=== PATIENT | female | born 1960 | race Caucasian/White ===

== ENCOUNTER → 2017-10-02 | Outpatient (CLI) | payer OTHER | LOC: CIMAGING 13:02 | PROVIDERS: ATTEND Pain Medicine Interventional Pain Medicine | DX: M16.0 Bilateral primary osteoarthritis of hip (principal); M48.56XA Collapsed vertebra, not elsewhere classified, lumbar region, initial encounter for fracture; Z98.1 Arthrodesis status | CPT/HCPCS: 72100-PO; 73521-PO ==

== ENCOUNTER → 2018-03-16 | Outpatient (CLI) | payer OTHER | LOC: SBRMNEURO 21:30 | PROVIDERS: ATTEND Psychiatry & Neurology Sleep Medicine | DX: G47.31 Primary central sleep apnea (principal); G47.34 Idiopathic sleep related nonobstructive alveolar hypoventilation ==

== ENCOUNTER 2018-06-28 13:56 | Emergency (ER) | payer OTHER ==
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
[2018-06-28 15:32] VITALS: BP 131/75
--- NOTE | 2018-07-11 15:02 | CPEKG ---
Test Reason : OPEN Blood Pressure : / mmHG Vent. Rate : 068 BPM Atrial Rate : 068 BPM P-R Int : 158 ms QRS Dur : 088 ms QT Int : 383 ms P-R-T Axes : 024 008 004 degrees QTc Int : 408 ms Sinus rhythm Confirmed by Ramiro Manriquez ([id number]) on 07/11/2018 3:02:35 PM Referred By: Confirmed By:Ramiro Manriquez
== END 2018-06-28 15:21 | disposition home or self-care (01) ==
LOC: CED 13:56
DX: S20.219A Contusion of unspecified front wall of thorax, initial encounter (principal); S46.811A Strain of other muscles, fascia and tendons at shoulder and upper arm level, right arm, initial encounter; V43.62XA Car passenger injured in collision with other type car in traffic accident, initial encounter
CPT/HCPCS: 73030-PO

== ENCOUNTER → 2018-11-16 | Outpatient (CLI) | payer OTHER | LOC: CIMAGING 13:58 | PROVIDERS: ATTEND Internal Medicine | DX: Z12.31 Encounter for screening mammogram for malignant neoplasm of breast (principal) ==

== ENCOUNTER → 2018-11-21 | Outpatient (CLI) | payer OTHER | LOC: CIMAGING 13:12 | PROVIDERS: ATTEND Internal Medicine | DX: R91.1 Solitary pulmonary nodule (principal); Z87.891 Personal history of nicotine dependence; I25.10 Atherosclerotic heart disease of native coronary artery without angina pectoris; S22.21XA Fracture of manubrium, initial encounter for closed fracture | CPT/HCPCS: 71250-PO ==

== ENCOUNTER → 2018-12-13 | Outpatient (CLI) | payer OTHER | LOC: CIMAGING 13:16 | PROVIDERS: ATTEND Internal Medicine | DX: N63.10 Unspecified lump in the right breast, unspecified quadrant (principal) | CPT/HCPCS: 76641-PO ==

== ENCOUNTER 2019-03-11 12:29 | Emergency (ER) | payer OTHER ==
[2019-03-11] MEDS ORDERED: METOCLOPRAMIDE 10 MG/2 ML VIAL IVP ONE (12:52)
[2019-03-11] MEDS ORDERED: HYDROmorphONE/DILAUDID 2 MG/ML INJ IVP ONE ×2 (12:52→13:37)
[2019-03-11] MEDS ORDERED: NS 1,000 ML IV ONE (12:52)
--- NOTE | 2019-03-11 12:59 | EDPHY ---
H & P Stated Complaint: Severe headache Time Seen by Provider: 03/11/19 12:41 HPI/ROS: CHIEF COMPLAINT: Severe headache HISTORY OF PRESENT ILLNESS: Patient is a 58-year-old female with a history of complex neurologic history. She suffered a stroke in 2007 which left residual right-sided face arm and leg weakness and contractures. After the stroke she had a surgical PFO correction and has since had a baclofen pump placed. She also had a neuro cortex stimulator placed few years later. In 2010 she fell and had an intracranial hemorrhage. She states that they were bridging veins and that she had a craniectomy. No coils or stents or clips. She then had another spontaneous bleed 6 months later and had a repeat craniectomy and cauterization of veins. This was all done in [place]. She reports having frequent mild headaches and she is followed by Neurology Dr. Bailey. She states however that her headache last night and today have been significantly worse than usual. Her daughter feels like she is having some slight confusion but able to answer all questions correctly. No new weakness or deficits. No recent fevers or infections. No recent trauma. She is on Coumadin. Severity: Severe Modifying factors: None REVIEW OF SYSTEMS: Constitutional: denies: chills, fever, recent illness, recent injury EENTM: denies: blurred vision, double vision, nose congestion Respiratory: denies: cough, shortness of breath Cardiac: denies: chest pain, irregular heart rate, lightheadedness, palpitations Gastrointestinal/Abdominal: denies: abdominal pain, diarrhea, nausea, vomiting, blood streaked stools Genitourinary: denies: dysuria, frequency, hematuria, pain Musculoskeletal: See HPI Skin: denies: lesions, rash, jaundice, bruising Neurological: See HPI Hematologic/Lymphatic: denies: blood clots, easy bleeding, easy bruising Immunologic/allergic: denies: HIV/AIDS, transplant 10 systems reviewed and negative except as noted EXAM: GENERAL: Well-appearing, well-nourished and in no acute distress. HEAD: Atraumatic, normocephalic. EYES: Pupils equal round and reactive to light, extraocular movements intact, sclera anicteric, conjunctiva are normal. ENT:oropharynx clear without exudates. Moist mucous membranes. NECK: Normal range of motion, supple without lymphadenopathy or JVD. LUNGS: Breath sounds clear HEART: Regular rate and rhythm without murmurs, rubs or gallops. ABDOMEN: Soft, nontender, normoactive bowel sounds. No guarding, no rebound. No masses appreciated. BACK: No CVA tenderness, no spinal tenderness, step-offs or deformities EXTREMITIES: Normal range of motion, no pitting or edema. No clubbing or cyanosis. NEUROLOGICAL: Right-sided cranial nerve deficit does well as arm and leg weakness, numbness and contractures, these are all at baseline. No new deficits on her left side. Baseline speech. Normal sensation and movement of her left arm and leg. PSYCH: Normal mood, normal affect. SKIN: Warm, dry, normal turgor, no visible rashes or lesions. Source: Patient Exam Limitations: No limitations - Personal History Tetanus Vaccine Date: < 10 years - Medical/Surgical History Hx Asthma: No Hx Chronic Respiratory Disease: Yes Hx Diabetes: No Hx Cardiac Disease: No Hx Renal Disease: No Hx Cirrhosis: No Hx Alcoholism: No Hx HIV/AIDS: No Hx Splenectomy or Spleen Trauma: No Other PMH: deep Brain stimulator, CVA 2007 with right sided deficits, nerve pain , HTN, intracranial hemorrhage with craniotomy x2, PFO repair, bacolfin pump, COPD, - Family History Significant Family History: No pertinent family hx - Social History Smoking Status: Former smoker Alcohol Use: Sober Drug Use: None Constitutional: Initial Vital Signs Temperature (C) 37.1 C 03/11/19 12:37 Heart Rate 64 03/11/19 12:37 Respiratory Rate 18 03/11/19 12:37 Blood Pressure 155/102 H 03/11/19 12:37 O2 Sat (%) 93 03/11/19 12:37 O2 Delivery Mode Nasal Cannula O2 (L/minute) 2 Allergies/Adverse Reactions: Penicillins Allergy (Verified 03/11/19 12:36) tramadol Allergy (Verified 03/11/19 12:36) Home Medications: Medication Instructions Recorded Baclofen [Baclofen 10 mg (RX)] 01/12/15 DULoxetine [Cymbalta] 01/12/15 GABAPENTIN 01/12/15 Lisinopril [Zestril 5 mg (*)] 01/12/15 Methocarbamol [Robaxin 500 mg (RX)] 01/12/15 Coumadin 03/11/19 Oxycodone HCl 03/11/19 Xtampza ER 03/11/19 Medical Decision Making - Diagnostics Imaging: Discussed imaging studies w/ call center rn Radiologist ED Course/Re-evaluation: 1:[address] scans are all very reassuring. Lab work is reassuring. Coumadin is therapeutic. We discussed the low risk that she has for bleeding at this point. We did discuss performing lumbar puncture but risks or greater than benefits at this point because of her previous lumbar surgery as well as the fact that she is currently on Coumadin. She is feeling better but is requesting more pain medication for headache and for her legs which has chronic pain and cramping. She did well with the initial dose of Dilaudid. She previously had listed as an allergy that made her "stopped breathing". Will remove this from her allergy last. She is not supposed to take ibuprofen or Toradol. 2:20 p.m. patient's headache is resolved. She is eager to go home. She and her daughter declined further workup or observation. Strict return precautions given. Discussed follow-up with Neurology Dr. Bailey for persistent headaches. They declined prescriptions. Differential Diagnosis: Partial list of the Differential diagnosis considered include but were not limited to; migraine, tension headache, muscle strain and although unlikely based on the history and physical exam, I also considered hemorrhage, thrombus, aneurysm, dissection, CVA, meningitis. I discussed these differential diagnoses and the plan with the patient as well as the usual and expected course. The patient understands that the diagnosis is provisional and that in medicine we are not always correct and that further workup is often warranted. Usual and customary warnings were given. All of the patient's questions were answered. The patient was instructed to return to the emergency department should the symptoms at all worsen or return, otherwise to followup with the physician as we discussed. - Data Points Medications Given: Discontinued Medications Hydromorphone HCl (Dilaudid) 0.25 mg IVP EDNOW ONE Stop: 03/11/19 12:53 Last Admin: 03/11/19 13:05 Dose: 0.25 mg Hydromorphone HCl (Dilaudid) 0.5 mg IVP EDNOW ONE Stop: 03/11/19 13:38 Last Admin: 03/11/19 13:41 Dose: 0.5 mg Sodium Chloride (Ns) 1,000 mls @ 0 mls/hr IV ONCE ONE; Wide Open PRN Reason: Protocol Stop: 03/11/19 12:53 Last Admin: 03/11/19 13:22 Dose: 1,000 mls Metoclopramide HCl (Reglan Injection) 10 mg IVP EDNOW ONE Stop: 03/11/19 12:53 Last Admin: 03/11/19 13:21 Dose: 10 mg Point of Care Test Results: CBC CBC Collection Date 03/11/19 CBC Collection Time 12:55 WBC 5.92 RBC 3.98 HGB 12.7 HCT 38.6 PLT 204 Neut # 3.45 Neut 58.3 LYMPH # 1.50 LYMPH 25.3 MCV 97 Chemistry 03/11/19 13:00 POC Sodium 144 mEq/L mEq/L (135-145) POC Potassium 4.5 mEq/L mEq/L (3.3-5.0) POC Chloride 102.0 mEq/L mEq/L (97-110) POC Total CO2 31 mEq/L mEq/L (22-31) POC BUN 15 mg/dL mg/dL (7-23) POC Creatinine 0.6 mg/dL mg/dL (0.6-1.0) POC Glucose 117 mg/dL H mg/dL (70-100) POC Calcium 9.3 mg/dL mg/dL (8.5-10.4) POC Total Bilirubin 0.6 mg/dL mg/dL (0.1-1.4) POC AST 29 IU/L IU/L (14-46) POC ALT 25 IU/L IU/L (9-52) POC Alk Phosphatase 56 IU/L IU/L (38-126) POC Total Protein 6.7 g/dL g/dL (6.3-8.2) POC Albumin 3.4 g/dL L g/dL (3.5-5.0) Departure - Departure Disposition: Home, Routine, Self-Care Clinical Impression: Headache Qualifiers: Headache type: unspecified Headache chronicity pattern: acute headache Intractability: not intractable Qualified Code(s): R51 - Headache Condition: Fair Instructions: Acute Headache (ED) Referrals: Sherine Tee MD [Primary Care Provider] - As per Instructions Abhay Bailey DO [Medical Doctor] - 5-7 days, call for appt.
[2019-03-11] MEDS ORDERED: IOPAMIDOL (ISOVUE 370) 100 ML BTL IV ONE (13:05)
[2019-03-11 17:43] VITALS: BP 136/76
== END 2019-03-11 14:33 | disposition home or self-care (01) ==
LOC: CED 12:29
DX: R51 Headache (principal); E86.9 Volume depletion, unspecified; Z86.73 Personal history of transient ischemic attack (TIA), and cerebral infarction without residual deficits; Z79.01 Long term (current) use of anticoagulants
CPT/HCPCS: 70450; 70496; 70498; 96361; 96374; 96375; 96376; 99285; J1170; J2765; Q9967; 80053-ER; 85025-QW-ER